=== PATIENT | female | born 1985 | race Caucasian/White ===

== ENCOUNTER 2019-07-30 05:39 | Inpatient (IN) | payer OTHER ==
[2019-07-30] VITALS (41 sets, daily range): BP systolic 102–142; BP diastolic 56–89
[~2019-07-30] VITALS: Ht 170.2 cm; Wt 108.5 kg
--- NOTE | 2019-07-30 05:30 | NUR ---
AMY MIGUEL presented to unit via ambulation from ED, accompanied by SO, with purpose INDUCTION. AMY MIUGEL weighed, gowned, voided, and to bed. EFHM and TOCO applied, VS taken. AMY MIGUEL oriented to bed controls, call light, TV, heat, and A/C controls.
[2019-07-30] MEDS ORDERED: LEVO50TA PO (05:43)
[2019-07-30] MEDS ORDERED: D5 LR IV SOLUTION 1,000 ML IV ONE (05:45)
[2019-07-30] MEDS ORDERED: D5 LR IV SOLUTION 1,000 ML IV SCH (05:47)
[2019-07-30] MEDS ORDERED: MINERAL OIL CONCENTRATE 99.9% 15 ML UDC TOP PRN (06:00)
[2019-07-30] MEDS ORDERED: CATHETER FLUSH 10 ML SYR IV SCH ×2 (06:00→14:00)
[2019-07-30 06:12] LABS: BASOPHILS % (AUTO) 0 % (0-10); EOSINOPHILS # (AUTO) 0.2 10^3/uL (0.0-0.3); EOSINOPHILS % (AUTO) 2 % (0-10); HEMATOCRIT 33 % (35-52); HEMOGLOBIN 10.5 G/DL (11.5-16.0); LYMPHOCYTES # (AUTO) 1.8 X 10^3 (1.0-4.0); LYMPHOCYTES % (AUTO) 19 % (12-44); MEAN CORPUSCULAR HEMOGLOBIN 28 PG (25-34); MEAN CORPUSCULAR HGB CONC 32 G/DL (32-36); MEAN CORPUSCULAR VOLUME 87 FL (80-99); MEAN PLATELET VOLUME 11.4 FL (7.4-10.4); MONOCYTES # (AUTO) 0.6 X 10^3 (0.0-1.0); MONOCYTES % (AUTO) 7 % (0-12); NEUTROPHILS # (AUTO) 6.5 X 10^3 (1.8-7.8); NEUTROPHILS % (AUTO) 71 % (42-75); PLATELET COUNT 205 10^3/uL (130-400); RED CELL DISTRIBUTION WIDTH 14.1 % (10.0-14.5); WHITE BLOOD COUNT 9.1 10^3/uL (4.3-11.0)
[2019-07-30] MEDS ORDERED: LACTATED RINGERS 1,000 ML IV ONE (06:25)
[2019-07-30] MEDS ORDERED: SUFENTA 0.6MCG/ML BUPIVA 0.125 100 ML ONE (06:25)
[2019-07-30] MEDS ORDERED: OXYTOCIN/NORMAL SALINE 500 ML IV ONE (06:26)
[2019-07-30] MEDS: LACTATED RINGERS 1,000 ML IV SCH ×2 (06:30→10:56)
[2019-07-30] MEDS ORDERED: OXYTOCIN/NORMAL SALINE 500 ML IV SCH ×2 (06:30→12:54)
[2019-07-30] MEDS ORDERED: fentaNYL INJECTION 100 MCG/2 ML AMP ONE (06:46)
[2019-07-30] MEDS ORDERED: FLU QUADRIvalent (5+ YOA) 2019-2020 (AFLURIA) 0.5 ML IM ONE (07:00)
--- NOTE | 2019-07-30 07:00 | NUR ---
REPORT FROM OLGA LUCIA
--- NOTE | 2019-07-30 07:17 | History & Physical-OB/GYN ---
History of Present Illness History of Present Illness Reason for visit/HPI Pitocin Induction of Labor Date of Admission Jul 30, 2019 at 05:39 Date Seen by a Provider: Jul 30, 2019 Time Seen by a Provider: 07:05 I consulted on this patient on 07/30/19 07:12 Attending Physician Damon Soni DO Admitting Physician Damon Soni DO Consult Allergies and Home Medications Allergies Coded Allergies: No Known Drug Allergies (Unverified , 07/30/19) Home Medications Levothyroxine Sodium 50 Mcg Tablet, 50 MCG PO DAILY, (Reported) Patient Home Medication List Home Medication List Reviewed: Yes Past Cqiomof-Hsotre-Kotjyb Hx Patient Social History Marrital Status: Alcohol Use: Denies Use Recreational Drug Use: No Physical Abuse Screen: No Sexual Abuse: No Recent Foreign Travel: No Contact w/other who traveled: No Recent Infectious Disease Expo: No Seasonal Allergies Seasonal Allergies: No Surgeries No Respiratory No Cardiovascular No Neurological No Reproductive System Expected Date of Delivery: Jul 31, 2019 Genitourinary No Gastrointestinal No Musculoskeletal No Endocrine History of Endocrine Disorders: Yes HEENT History of HEENT Disorders: No Cancer No Psychosocial History of Psychiatric Problem: No Integumentary History of Skin or Integumenta: No Blood Transfusions History of Blood Disorders: No Family Medical History Family Hx: Alcoholism 19 FATHER Review of Systems Constitutional: see HPI Physical Exam Physical Exam Vital Signs Vital Signs Date Time Temp Pulse Resp B/P (MAP) Pulse Ox O2 Delivery O2 Flow Rate FiO2 07/30/19 07:00 85 18 132/77 (95) 97 Room Air 07/30/19 06:55 83 18 141/84 (103) 98 Room Air 07/30/19 06:50 84 18 142/83 (102) 98 Room Air 07/30/19 06:40 78 18 130/73 (92) 98 Room Air 07/30/19 06:25 86 18 133/73 (93) 98 Room Air 07/30/19 05:54 36.5 85 18 98 Room Air 07/30/19 05:42 36.5 85 18 131/78 (95) 98 Room Air Capillary Refill : Less Than 3 Seconds Labs Laboratory Tests 07/30/19 06:00: White Blood Count 9.1, Red Blood Count 3.80L, Hemoglobin 10.5L, Hematocrit 33L, Mean Corpuscular Volume 87, Mean Corpuscular Hemoglobin 28, Mean Corpuscular Hemoglobin Concent 32, Red Cell Distribution Width 14.1, Platelet Count 205, Mean Platelet Volume 11.4H, Neutrophils (%) (Auto) 71, Lymphocytes (%) (Auto) 19, Monocytes (%) (Auto) 7, Eosinophils (%) (Auto) 2, Basophils (%) (Auto) 0, Neutrophils # (Auto) 6.5, Lymphocytes # (Auto) 1.8, Monocytes # (Auto) 0.6, Eosinophils # (Auto) 0.2, Basophils # (Auto) 0.0 General Appearance: No Apparent Distress, WD/WN Respiratory: Chest Non Tender, Lungs Clear, Normal Breath Sounds Cardiovascular: Regular Rate, Rhythm Abdominal: normal bowel sounds Labia: WNL Labia Mass: soft Vagina: WNL Cervix: WNL Cervix OS: other (2 cm/50%/-3 Vertex/Intact) Assessment/Plan Assessment and Plan Assessment: Intrauterine at 39 6/7 weeks Plan: Pitocin Induction of labor. Artificial Rupture of Membranes. Epidural Anesthesia. I expect a normal spontaneous vaginal delivery. Admission Diagnosis Assessment: Intrauterine at 39 6/7 weeks Admission Status: Inpatient Order (span 2 midnights) Reason for Inpatient Admission: Pitocin Induction of Labor at 39 6/7 weeks gestation Clinical Quality Measures DVT/VTE Risk/Contraindication: Risk Factor Score Per Nursin RFS Level Per Nursing on Admit: 1=Low/No VTE DAMON AMEZQUITA DO Jul 30, 2019 07:17 POS
[2019-07-30] MEDS ORDERED: diphenhydrAMINE 50 MG/ML INJ (BENADRYL) IV PRN (08:15)
[2019-07-30] MEDS ORDERED: ONDANSETRON 4 MG/2 ML (SDV) Z0FRAN IV PRN (08:15)
[2019-07-30] MEDS ORDERED: EPIDURAL (SUFENTA 0.6MCG/ML BUPIVA 0.125%) 100 ML BAG EPI PRN (08:15)
[2019-07-30] MEDS ORDERED: NALOXONE 0.4 MG/ML 1 ML (NARCAN) VIAL IV PRN ×2 (08:15)
[2019-07-30] MEDS ORDERED: METOCLOPRAMIDE INJ 10 MG/2 ML (REGLAN) IV PRN (08:15)
[2019-07-30] MEDS ORDERED: LIDOCAINE/EPI 2% 1:200,00 (XYLOCAINE) 10 ML VIAL ONE (10:23)
[2019-07-30] MEDS ORDERED: LIDOCAINE/EPI 2% 1:200,00 (XYLOCAINE) 10 ML VIAL INJ ONE (11:00)
--- NOTE | 2019-07-30 12:59 | OB Labor & Delivery Record ---
Vag Delivery Note Vag Delivery Note Date of Delivery: 07/30/19 Preoperative Diagnosis: Nevaeh Smith is a (34 /Para / ,Gestational Age (wks)39 6/7 weeks with [no significant problems] Postoperative Diagnosis: Same Surgeon: MATTHEW ROSALES [employer]: [None] Anesthesia: [Epidural] Delivery Type: [Normal Spontaneous Vaginal Delivery with Midline Episiotomy and Standard Repair] Findings: [] Viable [Male] infant, apgars [9, 9], weight [8 pounds 12 ounces] Lacerations: Midline Episiotomy with standard repair Intact placenta with 3 vessel cord. No nuchal cord, body cord or shoulder dystocia Estimated Blood Loss: [300] ml Complications: None Condition: Stable Description of Procedure: The patient is a 34 year old female who presented [for Pitocin Induction of Labor]. She was admitted and informed consent was obtained. Her labor course was remarkable for [nothing] She progressed to complete dilatation and began to push. She was then set up for delivery. The 's head was delivered atraumatically in the [PRECIOUS] position. The shoulders and remainder of the 's body were th en delivered without difficulty. Upon delivery, the head was held below the level of the perineum and the mouth and nares were bulb suctioned. The cord was doubly clamped and cut and the was handed off to the pediatric staff. An intact placenta with 3-vessel cord delivered via Jose C and there was found to be minimal bleeding.~ Vigorous fundal massage was performed and the fundus was found to be firm. IV oxytocin was given. Examination of the vagina and perineum revealed a [midline esisiotomy] laceration repaired in the usual fashion with 3- 0 vicryl suture. Following the repair, sponge, instrument and needle counts were correct. Mom and baby were both in stable condition in the labor suite. Vitals - Labs Vital Signs - I&O Vital Signs Date Time Temp Pulse Resp B/P (MAP) Pulse Ox O2 Delivery O2 Flow Rate FiO2 07/30/19 07:00 85 18 132/77 (95) 97 Room Air 07/30/19 06:55 83 18 141/84 (103) 98 Room Air 07/30/19 06:50 84 18 142/83 (102) 98 Room Air 07/30/19 06:40 78 18 130/73 (92) 98 Room Air 07/30/19 06:25 86 18 133/73 (93) 98 Room Air 07/30/19 05:54 36.5 85 18 98 Room Air 07/30/19 05:42 36.5 85 18 131/78 (95) 98 Room Air I & O 07/30/19 07:00 Intake Total 1000 ml Balance 1000 ml Labs Laboratory Tests 07/30/19 06:00: White Blood Count 9.1, Red Blood Count 3.80L, Hemoglobin 10.5L, Hematocrit 33L, Mean Corpuscular Volume 87, Mean Corpuscular Hemoglobin 28, Mean Corpuscular Hemoglobin Concent 32, Red Cell Distribution Width 14.1, Platelet Count 205, Mean Platelet Volume 11.4H, Neutrophils (%) (Auto) 71, Lymphocytes (%) (Auto) 19, Monocytes (%) (Auto) 7, Eosinophils (%) (Auto) 2, Basophils (%) (Auto) 0, Neutrophils # (Auto) 6.5, Lymphocytes # (Auto) 1.8, Monocytes # (Auto) 0.6, Eosinophils # (Auto) 0.2, Basophils # (Auto) 0.0 MATTHEW ROSALES DO Jul 30, 2019 12:59 POS
[2019-07-30] MEDS ORDERED: WITCH HAZEL(TUCKS) 40 EA JAR TOP PRN (13:00)
[2019-07-30] MEDS ORDERED: TETANUS,DIPTH,PERTUSS P/F (BOOSTRIX) 0.5 ML VIAL IM ONE (13:00)
[2019-07-30] MEDS ORDERED: MEASLES,MUMPS,RUBELLA 1 EA INJ SQ ONE (13:00)
[2019-07-30] MEDS ORDERED: BENZOCAINE/MENTHOL (DERMOPLAST) 56 ML CAN TP PRN (13:00)
[2019-07-30] MEDS: IBUPROFEN 800 MG (MOTRIN) TAB PO SCH ×2 (14:02→20:04)
--- NOTE | 2019-07-30 14:02 | NUR ---
FFU/2 MOD LOCHIA NOTED, ABEBE-CARE COMPLETED PAD AND PANTIES CHANGED. SCHEDULED MOTRIN GIVEN, PITOCIN 2ND BAG STARTED PER ORDER.
--- NOTE | 2019-07-30 15:05 | NUR ---
ABEBE-CARE COMPLETED, VSS, NO DISTRESS NOTED PAD AND PANTIES CHANGED. PT DENIES NEEDING TO VOID. PT TRANSFERRED TO ROOM 3309 BY FOR CONTINUED CARE, DENIES C/O OR QUESTIONS, FFU/2 LT/MOD LOCHIA NOTED, EXPLAINED INFOR PACKETS AND PLAN OF CARE, NO QUESTIONS OTED, ASSISTED PT TO BR BUT UNABLE TO VOID AT THIS TIME WILL MONITOR CLOSELY.
--- NOTE | 2019-07-30 16:02 | NUR ---
DR ROSALES HERE, NO NEW ORDERS.
--- NOTE | 2019-07-30 17:55 | NUR ---
PT UP TO BR, VOIDED LARGE AMOUNT, NEW PAD AND PANTIES ON, BACK TO BED, NO DISTRESS NOTED, PTS FAMILY AT SIDE.
[2019-07-30] MEDS: ACETAMINOPHEN 500 MG TAB (TYLENOL) PO SCH (19:08)
[2019-07-30] MEDS: DOCUSATE SODIUM 100 MG (COLACE) CAP PO SCH (20:04)
[2019-07-31 00:12] VITALS: BP 99/55
[2019-07-31] MEDS: IBUPROFEN 800 MG (MOTRIN) TAB PO SCH ×2 (02:21→10:33)
[2019-07-31 05:15] VITALS: BP 113/75
[2019-07-31] MEDS: ACETAMINOPHEN 500 MG TAB (TYLENOL) PO SCH ×2 (05:15→14:59)
[2019-07-31] MEDS ORDERED: ACET-77 PO (06:23)
[2019-07-31] MEDS ORDERED: IBUP-1780 PO (06:23)
[2019-07-31] MEDS ORDERED: DOCU100C37 PO (06:23)
[2019-07-31] MEDS ORDERED: OXC5T PO (06:23)
--- NOTE | 2019-07-31 06:28 | Discharge Summary ---
Diagnosis/Chief Complaint Date of Admission Jul 30, 2019 at 05:39 Date of Discharge July 31, 2019 Discharge Date: Jul 31, 2019 Discharge Time: 13:30 Admission Diagnosis Admission Diagnosis Intrauterine at 39 6/7 weeks Discharge Diagnosis Intrauterine at 39 6/7 weeks--delivered Reason Hospital Visit Pitocin Induction of Labor Discharge Summary Hospital Course Was the Problem List Reviewed?: Yes Hospital Course Ms. Smith was admitted to the hospital for Pitocin Induction of Labor. I artificially rupture her membranes. She received an Epidural for antepartum pain management. She progressed to complete. After a short course of pushing, delivered a healthy, viable male over a midline episiotomy. The episiotomy was repaired in standard fashion. The remainder of her hospitalization was unremarkable. Her vital signs remained stable throughout her hospitalization. She will be discharged to home with instructions, prescriptions, and a follow up appointment. Labs Laboratory Tests 07/30/19 06:00: Red Blood Count 3.80L, Hemoglobin 10.5L, Hematocrit 33L, Mean Platelet Volume 11.4H Procedures None. Discharge Physical Examination Allergies: Coded Allergies: No Known Drug Allergies (Unverified , 07/30/19) Vitals & I&Os Vital Signs Date Time Temp Pulse Resp B/P (MAP) Pulse Ox O2 Delivery O2 Flow Rate FiO2 07/31/19 05:15 36.7 60 20 113/75 (88) 100 Room Air 07/30/19 12:00 15.00 General Appearance: Alert, Oriented X3, Cooperative HEENT: Atraumatic Respiratory: Clear to Auscultation, Normal Air Movement Cardiovascular: Regular Rate, No Murmurs Abdominal: Normal Bowel Sounds, Soft Extremities: No Clubbing, No Cyanosis Skin: No Rashes Neuro: Normal Gait, Normal Speech, Strength at 5/5 X4 Ext Psych/Mental Status: Mental Status NL Discharge Home Medications Reviewed and agree with Discharge Medication list on patient's Discharge Instruction sheet Instructions to Patient/Family Please see electronic discharge instructions given to patient. Clinical Quality Measures DVT/VTE Risk/Contraindication: Risk Factor Score Per Nursin RFS Level Per Nursing on Admit: 1=Low/No VTE PPX MATTHEW ROSALES DO Jul 31, 2019 06:28 POS
[2019-07-31 06:42] LABS: BASOPHILS % (AUTO) 0 % (0-10); EOSINOPHILS # (AUTO) 0.1 10^3/uL (0.0-0.3); EOSINOPHILS % (AUTO) 2 % (0-10); HEMATOCRIT 25 % (35-52); HEMOGLOBIN 7.8 G/DL (11.5-16.0); LYMPHOCYTES # (AUTO) 1.9 X 10^3 (1.0-4.0); LYMPHOCYTES % (AUTO) 22 % (12-44); MEAN CORPUSCULAR HEMOGLOBIN 28 PG (25-34); MEAN CORPUSCULAR HGB CONC 31 G/DL (32-36); MEAN CORPUSCULAR VOLUME 88 FL (80-99); MEAN PLATELET VOLUME 11.1 FL (7.4-10.4); MONOCYTES # (AUTO) 0.6 X 10^3 (0.0-1.0); MONOCYTES % (AUTO) 7 % (0-12); NEUTROPHILS % (AUTO) 70 % (42-75); PLATELET COUNT 143 10^3/uL (130-400); RED CELL DISTRIBUTION WIDTH 13.8 % (10.0-14.5); WHITE BLOOD COUNT 8.6 10^3/uL (4.3-11.0)
[2019-07-31] MEDS ORDERED: PRENATAL VITAMIN 1 EA TAB PO SCH (07:00)
--- NOTE | 2019-07-31 07:32 | Anesthesia-Regional Post-Op ---
Regional Patient Condition Mental Status: Alert, Oriented x3 Circulation: Same as Pre-Op Headache: Absent Sensation: Full Recovery Motor Block: Absent Post Op Complications Complications None Follow Up Care/Instructions Patient Instructions None needed. Anesthesia/Patient Condition Patient is doing well, no complaints, stable vital signs, no apparent adverse anesthesia problems. No complications reported per nursing. [place] [facility] [place] BEVERLEY Sanders CRNA Jul 31, 2019 07:32 POS
[2019-07-31] MEDS: DOCUSATE SODIUM 100 MG (COLACE) CAP PO SCH (10:32)
[2019-07-31 10:39] VITALS: BP 130/80
--- NOTE | 2019-07-31 10:39 | NUR ---
AM shift assessment completed and vital signs obtained, see interventions. Saline Lock DC'd. Scheduled Motrin, Colace, and PNV PO given at this time. TDAP and Flu vaccines administered, see EMAR. VIS sheets provided to patient.
--- NOTE | 2019-07-31 14:57 | NUR ---
Discharge instructions and medications reviewed with patient both written and verbally. Patient verbalizes understanding and questions answered.
--- NOTE | 2019-07-31 16:15 | NUR ---
Patient discharged at this time and ambulated down to private vehicle accompanied by Mayuri LUCIA. No signs or symptoms of distress noted.
== END 2019-07-31 16:15 | disposition home or self-care (01) | DRG 807 ==
LOC: LDRP 05:39 → MERGE 05:39 → LDRP 15:33
PROVIDERS: ADMIT Obstetrics & Gynecology; ATTEND Obstetrics & Gynecology
PROC: 10E0XZZ Delivery of Products of Conception, External Approach (ICD-10-PCS; principal; 2019-07-30)
PROC: 0W8NXZZ Division of Female Perineum, External Approach (ICD-10-PCS; principal; 2019-07-30)
PROC: 10907ZC Drainage of Amniotic Fluid, Therapeutic from Products of Conception, Via Natural or Artificial Opening (ICD-10-PCS; principal; 2019-07-30)
PROC: 3E033VJ Introduction of Other Hormone into Peripheral Vein, Percutaneous Approach (ICD-10-PCS; principal; 2019-07-30)
DX: O80 Encounter for full-term uncomplicated delivery (principal); Z37.0 Single live birth; Z3A.39 39 weeks gestation of pregnancy; Z23 Encounter for immunization
CPT/HCPCS: 36415; 85025; 86850; 86900; 86901; 90715